=== PATIENT | male | born 1940 ===

== ENCOUNTER → 2021-04-19 | Outpatient (CLI) | payer MEDICARE, OTHER | END | disposition home or self-care (01) | LOC: LAB 15:19 → LAB SHORT 15:19 | DX: D36.17 Benign neoplasm of peripheral nerves and autonomic nervous system of trunk, unspecified (principal) | CPT/HCPCS: 88305 ==

== ENCOUNTER → 2022-03-22 | Outpatient (CLI) | payer MEDICARE, OTHER | LOC: LAB SHORT 11:16 → PLD 11:16 | DX: D48.5 Neoplasm of uncertain behavior of skin (principal) | CPT/HCPCS: 88305 ==